=== PATIENT | female | born 1985 | race Caucasian/White ===

== ENCOUNTER 2023-02-21 06:29 | Day surgery (SDC) | payer BC, SELFPAY ==
[2023-02-21] MEDS ORDERED: EXPAREL 133 MG/10 ML VIAL IJ ONE (06:30)
[2023-02-21] MEDS ORDERED: Pepcid 20 MG VIAL IV ONE ×2 (06:38→06:56)
[2023-02-21] MEDS ORDERED: Transderm Scop 1.5MG Patch TOP PRN (06:38)
[2023-02-21] MEDS ORDERED: Transderm Scop 1.5MG Patch ONE (06:56)
[2023-02-21] MEDS ORDERED: Lactated Ringers 1,000 ML IV ONE ×2 (06:57→10:38)
[2023-02-21] MEDS ORDERED: Lactated Ringers 1,000 ML IV SCH (07:00)
[2023-02-21] MEDS ORDERED: Zofran 4 MG/2 ML VIAL ONE (10:02)
[2023-02-21] MEDS ORDERED: Xylocaine-Mpf 2% 5 Ml Vial ONE (10:02)
[2023-02-21] MEDS ORDERED: DIPRIVAN 200 MG/20 ML IV ONE (10:02)
[2023-02-21] MEDS ORDERED: Decadron 4 MG INJ ONE (10:02)
[2023-02-21] MEDS ORDERED: Zemuron 100 MG/10 ML ONE (10:02)
[2023-02-21] MEDS ORDERED: Versed 2 MG/2 ML Injection ONE (10:05)
[2023-02-21] MEDS ORDERED: Marcaine Mpf 0.5% Vial 30 Ml ONE (10:09)
[2023-02-21] MEDS ORDERED: Pre-Attached Lta Kit TP ONE (10:09)
[2023-02-21] MEDS ORDERED: OFIRMEV 100 ML IV ONE (10:09)
[2023-02-21] MEDS ORDERED: SUBLIMAZE 100 MCG/2 ML ONE ×3 (10:13→12:55)
[2023-02-21] MEDS ORDERED: DEXMEDETOMIDINE 80 MCG/20ML-NS IV ONE (11:37)
[2023-02-21] MEDS ORDERED: BRIDION 200MG/2ML IV ONE (12:00)
[2023-02-21 14:10] VITALS: BP 119/75; PULSE 78; O2SAT 96
--- NOTE | 2023-02-21 15:22 | OP ---
SURGERY DATE: 02/21/2023 SURGERY TIME: 100 PREOPERATIVE DIAGNOSIS: 1. INSERTIONAL ACHILLES TENDONITIS. 2. LEFT CALCANEAL HEEL SPUR. 3. HAGLUNDS DEFORMITY. 4. PAIN LEFT ANKLE. POSTOPERATIVE DIAGNOSIS: 1. INSERTIONAL ACHILLES TENDONITIS. 2. LEFT CALCANEAL HEEL SPUR. 3. HAGLUNDS DEFORMITY. 4. PAIN LEFT ANKLE. PROCEDURE: 1. Posterior superior calcaneal exostectomy. 2. Achilles tendon debridement, detachment, and advancement. SURGEON: Darron Young D.P.M. FIBERGLASS MACHINE OPERATOR: None. ANESTHESIA: General. HEMOSTASIS: A thigh tourniquet set to 350 mm Hg for 71 total tourniquet minutes. ESTIMATED BLOOD LOSS: Minimal. INJECTABLES: See anesthesia report for details. INDICATIONS FOR PROCEDURE: Carey is a very pleasant 38 year-old female well known to my service for insertional Achilles tendonitis as well as a significantly enlarged calcaneal enthesophyte. The patient has been having pain for quite some time. She did have a procedure to the contralateral extremity with good success some years ago. At this time, patient does have an extreme amount of pain with ambulation and throughout the day. The patient understands all risks, complications, and benefits of surgical intervention including, but not limited to, infection; hematoma; seroma; possibility of delayed wound healing/non-wound healing; deep vein thrombosis; pulmonary embolism; possibility of rupture of Achilles tendon; and possibility of need for re-surgical intervention. No guarantees were provided as to the outcome of surgical intervention at this time. It is with that, we decided to proceed with surgical intervention. DESCRIPTION OF PROCEDURE: The patient was brought into the OR. Placed under general anesthesia. After being placed under general anesthesia, she was transferred from the cart to the OR table into the prone position. Following this, a popliteal block was provided. A well-padded thigh tourniquet was placed and the tourniquet was set to 350 mm Hg. At this time, the left lower extremity was prepped and draped in the typical sterile fashion and lowered onto the surgical field. At this time, attention was directed under lateral view of fluoroscopic guidance to the calcaneal spur. A skin planning was performed utilizing a skin marker and a freer. The central aspect of the tendon was identified as well as where the calcaneal spur was. From this standpoint, an Esmarch was utilized to exsanguinate the leg and the tourniquet was inflated. At this time, an incision was carried down with a 10 blade to the level of the peritenon. This was a curvilinear incision over the dorsal aspect of the bump. From that standpoint, inverted T incision was made on the tendon itself in order to reflect the significantly thickened and diseased Achilles tendon off of the posterior aspect of the calcaneus. A sagittal saw was utilized to resect the posterior calcaneal spur and then the Nathalie's deformity was then removed. Following this, a power lacy was then utilized to smooth down the surfaces of the bone until no sharp edges were identified. At this time, copious amounts of sterile saline were utilized to flush the surgical site. This was checked under multiple views and deemed to be adequate resection of the spur and the posterior calcaneus. At this time, the Achilles tendon was debrided of any calcifications in the distal 4 cm of the insertion until no calcifications were felt within the tendon. Following this, a 2.9 Juggernaut was introduced with broadband tape into the proximal row, retrograded out the posterior aspect of the tendon, and then an inverted row was performed anchoring it to 2 distal points utilizing two 4.5 Quattro Links. This was secured under tension getting the foot to approximately 35-45 degrees relative to the longitudinal axis of the leg. At this time, the peritenon was repaired. A 3 X 3 tapestry implant was then overlaid to prevent adhesions and scar tissue to the freshly repaired tendon. The skin was then closed utilizing 4-0 Monocryl and 3-0 Nylon was utilized to coapt the subcutaneous skin edges in horizontal mattress type fashion. A Suturegard was then utilized to take the tension off of the surgical site utilizing 2-0 Nylon. At this time, tourniquet was let down, a total of 71 total tourniquet minutes. Estimated blood loss was deemed to be minimal. A dressing consisting of Betadine, Adaptic, 4 X 4, Kerlix, and a well-padded posterior splint was applied to the patient's left lower extremity with 45 degrees relative to the longitudinal axis of the leg. The patient was then returned to the cart and reversed from anesthesia and returned to the PACU with vital signs stable and vascular status intact. The patient handled the anesthesia as well as the procedure without significant complication. Postoperative orders as indicated in the patient's discharge chart.
--- NOTE | 2023-02-21 22:55 | XRAY ---
1 minute 9 seconds of fluoroscopy was used in surgery for a right ankle Haglunds resection, resection of Achilles tendon, debridement & reattachment.
--- NOTE | 2023-02-22 19:23 | XRAY ---
Indication: Right ankle Haglunds resection. Resection of Achilles tendon, debridement, and reattachment. Intraoperative fluoroscopy provided for 1 minute 9 seconds. 9 digital spot images submitted for interpretation ultimately demonstrates partial resection posterior superior calcaneus with overlying postsurgical changes. Correlate with intraoperative findings/report.
== END 2023-02-21 14:00 | disposition home or self-care (01) ==
LOC: SDC 06:29
PROVIDERS: ATTEND Podiatrist Foot & Ankle Surgery
DX: M76.62 Achilles tendinitis, left leg (principal); M77.32 Calcaneal spur, left foot; M92.62 Juvenile osteochondrosis of tarsus, left ankle; M25.572 Pain in left ankle and joints of left foot
CPT/HCPCS: 27654; 28118; 73610; 76000; 76937; 94640; C1713; C1763; 64450; 76942; J1100; J2250; J2405; J2704; J3010; J7614; A9270-GY